=== PATIENT | female | born 1970 | race American Indian/Alaskan Native ===

== ENCOUNTER 2018-01-20 09:56 | Emergency (ER) | payer OTHER ==
--- NOTE | 2018-01-20 10:02 | EDM.PDOC ---
ED HPI GENERAL MEDICAL PROBLEM - General Chief Complaint: Abdominal Pain Stated Complaint: SENT FROM [facility]: [place] / [phone] (home) Time Seen by Provider: 01/20/18 09:59 Source of Information: Reports: Patient, Provider (Loela Olivares, [facility]), RN, RN Notes Reviewed History Limitations: Reports: No Limitations - History of Present Illness INITIAL COMMENTS - FREE TEXT/NARRATIVE: Pt presents to ER by POV, having been sent from [facility] by Leola Olivares for possible appendicitis. Pt with Hx of abdominal pain that has localized to the RLQ, assoc. with nausea, vomiting, and diarrhea. Pt had lab and UA at clinic. Nely Olivares reports to me by phone that pt has WBC 29,800, and a "clear urine". Pt states she received two IM shots at the clinic today, one for pain and one for nausea, but she doesn't know what the medications were. Pt reports onset of periumbilcial abdominal pain with nausea and vomiting Friday night at about 19:30HRS. Prior to the onset of Sx's [place] She and her ate the same food, but the did not get sick. Pt did possibly eat something from the salad bar that he did not. Pt reports recurrent fevers and chills with diaphoresis, and also had some watery diarrhea. The pain slowly localized to the right lower abdomen after about 24 hours. She denies flank pain, radiating pain, bloody or coffee ground emesis, bloody/black/or melanotic stools. Pt last ate solid food on 01/18/18. She attempted to sip coffee early this morning, but vomited it all up. 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: Musculoskeletal History: Reports: None Neurological History: Reports: None Psychiatric History: Reports: None Endocrine/Metabolic History: Reports: None Hematologic History: Reports: None Immunologic History: Reports: None Oncologic (Cancer) History: Reports: None Dermatologic History: Reports: None - Infectious Disease History Infectious Disease History: Reports: Chicken Pox - Past Surgical History Female Surgical History: Reports: Section Social & Family History - Family History Family Medical History: Noncontributory - Tobacco Use Smoking Status *Q: Current Every Day Smoker Tobacco Use Within Last Twelve Months: Cigarettes Years of Tobacco use: 27 Packs/Tins Daily: 0.5 Smoking Cessation Information Provided To Patient: No - Caffeine Use Caffeine Use: Reports: Coffee, Soda - Living Situation & Occupation Living situation: Reports: , with Spouse Occupation: Employed ED ROS GENERAL - Review of Systems Review Of Systems: ROS reveals no pertinent complaints other than HPI. ED EXAM, GI/ABD - Physical Exam Exam: See Below Exam Limited By: No Limitations General Appearance: Alert, Mild Distress (due to pain), Obese, Other ( uncomfortable, but non-toxic appearing) Eyes: Bilateral: Normal Appearance (no scleral icterus) Nose: Normal Inspection Throat/Mouth: Normal Inspection, Normal Lips, Normal Oropharynx, Normal Voice, No Airway Compromise Head: Atraumatic, Normocephalic Respiratory/Chest: No Respiratory Distress, Lungs Clear, Normal Breath Sounds, No Accessory Muscle Use, Chest Non-Tender Cardiovascular: Regular Rate, Rhythm, No Edema, Tachycardia GI/Abdominal Exam: Normal Bowel Sounds, Soft, No Distention, Guarding (at RLQ), Rebound (RLQ), Tender (generalized abdominal tenderness, and acutely tender with peritoneal signs at RLQ). No: Rigid (Female) Exam: Deferred Rectal (Female) Exam: Deferred Back Exam: Normal Inspection Extremities: Normal Inspection, Normal Range of Motion, Non-Tender, Normal Capillary Refill, No Pedal Edema Neurological: Alert, Oriented, CN II-XII Intact, Normal Cognition, No Motor/ Sensory Deficits Psychiatric: Normal Affect, Normal Mood Skin Exam: Warm, Dry, Intact, Normal Color, No Rash Course - Vital Signs Last Recorded V/S: Last Vital Signs Temp 37.3 C 01/20/18 09:58 Pulse 103 H 01/20/18 09:58 Resp 18 01/20/18 09:58 BP 122/81 01/20/18 09:58 Pulse Ox 97 01/20/18 09:58 - Orders/Labs/Meds Orders: Active Orders 24 hr Category Date Time Status Peripheral IV Care [RC] . DIRECTED Care 01/20/18 10:09 Active Abdomen Pelvis w Cont [CT] Stat Exams 01/20/18 10:11 Taken Sodium Chloride 0.9% [Saline Flush] Med 01/20/18 10:09 Active 10 ml FLUSH ASDIRECTED PRN Peripheral IV Insertion Adult [OM.PC] Stat Oth 01/20/18 10:08 Ordered Medication Orders Sodium Chloride (Saline Flush) 10 ml FLUSH ASDIRECTED PRN PRN Reason: Keep Vein Open Last Admin: 01/20/18 10:15 Dose: 10 ml Labs: Laboratory Tests 01/20/18 01/20/18 01/20/18 Range/Units 10:25 10:25 10:25 WBC 28.0 H* (5.0-10.0) 10^3/uL RBC 4.97 (4.2-5.4) 10^6/uL Hgb 15.8 (12.0-16.0) g/dL Hct 46.4 (37.0-47.0) % MCV 93.4 (80-100) fL MCH 31.8 (27.0-34.0) pg MCHC 34.1 (33.0-35.0) g/dL Plt Count 293 (150-450) 10^3/uL Neut % (Auto) 91.3 H (42.2-75.2) % Lymph % (Auto) 5.2 L (20.5-50.1) % [place] % (Auto) 3.3 (2-8) % Eos % (Auto) 0.1 L (1.0-3.0) % Baso % (Auto) 0.1 (0.0-1.0) % Sodium 135 (135-145) mmol/L Potassium 4.2 (3.6-5.0) mmol/L Chloride 99 L (101-111) mmol/L Carbon Dioxide 26.0 (21.0-31.0) mmol/L Anion Gap 14.2 BUN 12 (7-18) mg/dL Creatinine 0.8 (0.6-1.3) mg/dL Est Cr Clr Drug Dosing 75.07 mL/min Estimated GFR (MDRD) > 60 BUN/Creatinine Ratio 15.00 Glucose 121 H (74-105) mg/dL Lactic Acid 1.6 (0.5-2.2) mmol/L Calcium 9.4 (8.4-10.2) mg/dl Total Bilirubin 1.9 H (0.2-1.0) mg/dL AST 16 (10-42) IU/L ALT 11 (10-60) IU/L Alkaline Phosphatase 78 (42-121) IU/L Total Protein 7.4 (6.7-8.2) g/dl Albumin 3.8 (3.2-5.5) g/dl Globulin 3.6 Albumin/Globulin Ratio 1.06 Amylase 24 L (28-100) U/L Lipase 18 L (22-51) U/L Labs from [facility] from 01/20/18 reviewed by me. Meds: Medications Generic Name Dose Route Start Last Admin Trade Name Freq PRN Reason Stop Dose Admin Sodium Chloride 10 ml 01/20/18 10:09 01/20/18 10:15 Saline Flush FLUSH 10 ml ASDIRECTED PRN Administration Keep Vein Open Discontinued Medications Generic Name Dose Route Start Last Admin Trade Name Freq PRN Reason Stop Dose Admin Hydromorphone HCl 1 mg 01/20/18 10:41 01/20/18 10:53 Dilaudid IVPUSH 01/20/18 10:42 1 mg ONETIME ONE Administration Sodium Chloride 1,000 mls @ 999 mls/hr 01/20/18 10:09 01/20/18 10:41 Normal Saline IV 01/20/18 11:09 999 mls/hr .BOLUS ONE Administration Piperacillin Sod/Tazobactam 50 mls @ 100 mls/hr 01/20/18 10:41 01/20/18 11:05 Sod 4.5 gm/ Sodium Chloride IV 01/20/18 11:10 100 mls/hr ONETIME ONE Administration Iopamidol 75 ml 01/20/18 10:11 01/20/18 10:32 Isovue-300 (61%) IVPUSH 01/20/18 10:12 75 ml ONETIME ONE Administration Ondansetron HCl 4 mg 01/20/18 10:41 01/20/18 10:50 Zofran IV 01/20/18 10:42 4 mg ONETIME ONE Administration - Radiology Interpretation Free Text/Narrative:: CT Abd/Pelvis w/IV contrast: appendolith w/periappendiceal fat stranding, and dil. appendix, see Rad. report. CT Results Date: 01/20/18 Departure - Departure Time of Disposition: 11:18 Disposition: DC/Tfer to Acute Hospital 02 Condition: Serious Clinical Impression: Appendicitis Qualifiers: Appendicitis type: acute appendicitis Acute appendicitis type: with localized peritonitis Qualified Code(s): K35.3 - Acute appendicitis with localized peritonitis - Discharge Information Referrals: Nori Daugherty MD [Primary Care Provider] - Forms: ED Department Discharge, Interfacility Transfer EMTALA - My Orders Last 24 Hours: My Active Orders 01/20/18 10:08 Peripheral IV Insertion Adult [OM.PC] Stat 01/20/18 10:09 Peripheral IV Care [RC] . DIRECTED Sodium Chloride 0.9% [Saline Flush] 10 ml FLUSH ASDIRECTED PRN 01/20/18 10:11 Abdomen Pelvis w Cont [CT] Stat - Assessment/Plan Last 24 Hours: My Active Orders 01/20/18 10:08 Peripheral IV Insertion Adult [OM.PC] Stat 01/20/18 10:09 Peripheral IV Care [RC] . DIRECTED Sodium Chloride 0.9% [Saline Flush] 10 ml FLUSH ASDIRECTED PRN 01/20/18 10:11 Abdomen Pelvis w Cont [CT] Stat
[2018-01-20] MEDS ORDERED: Sodium Chloride 0.9% 1,000 ML IV ONE (10:09)
[2018-01-20] MEDS ORDERED: Sodium Chloride 0.9% 10 ML Syringe FLUSH PRN (10:09)
[2018-01-20] MEDS ORDERED: Iopamidol 612 MG/ML 75 ML Bottle IVPUSH ONE (10:11)
[2018-01-20 10:29] VITALS: BP 122/81
[2018-01-20] MEDS ORDERED: Piperacillin/Tazobactam 4.5 GM in Sodium Chloride 0.9% 50 ML IV ONE (10:41)
[2018-01-20] MEDS ORDERED: HYDROmorphone 0.5 MG/0.5 ML Syringe IVPUSH ONE (10:41)
[2018-01-20] MEDS ORDERED: Ondansetron 4 MG/2 ML SDV IV ONE (10:41)
[2018-01-20 10:52] LABS: ANION GAP 14.2; CHLORIDE,CL 99 mmol/L (101-111); SODIUM,NA 135 mmol/L (135-145)
== END 2018-01-20 11:45 ==
LOC: DL.ED 09:56
DX: K35.3 Acute appendicitis with localized peritonitis (principal); F17.210 Nicotine dependence, cigarettes, uncomplicated; Z88.5 Allergy status to narcotic agent
CPT/HCPCS: 36415; 74177; 80053; 82150; 83605; 83690; 85025; 96365; 96375; 99284; 99285; J1170; J2405; J2543; J7030; J7050; Q9967

== ENCOUNTER 2018-01-25 03:02 | Emergency (ER) | payer OTHER ==
[2018-01-25 03:07] VITALS: BP 140/83
--- NOTE | 2018-01-25 03:09 | EDM.PDOC ---
ED HPI GENERAL MEDICAL PROBLEM - General Stated Complaint: SURGICAL SITE "LEAKING" [id number] Time Seen by Provider: 01/25/18 03:09 Source of Information: Reports: Patient, Family, RN, RN Notes Reviewed History Limitations: Reports: No Limitations - History of Present Illness INITIAL COMMENTS - FREE TEXT/NARRATIVE: Pt to ER with c/o thick copious drainage from an abdominal incision site. Pt states she had surgery on 01/20/18 for a ruptured appendix. She states there was a lot of infection that was cleaned from her abdomen. Patient states all has been good until this past evening when she had a terrible side ache. She states she took 2 pain pills and went to sleep at midnight. She states she woke up just prior to arrival with a lot of bloody/pus drainage. Patient states she is very tender to the abdomen. Pt states last BM was yesterday. Patient states she has not been eating a whole lot. Onset: Today, Sudden Right Upper Abdomen Pain Score (Numeric/FACES): 8 - Related Data Allergies Allergy/AdvReac Type Severity Reaction Status Date / Time codeine Allergy Hallucinati Verified 01/20/18 10:28 [From Tylenol-Codeine #3] ons Home Meds: Home Meds . 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: Musculoskeletal History: Reports: None Neurological History: Reports: None Psychiatric History: Reports: None Endocrine/Metabolic History: Reports: None Hematologic History: Reports: None Immunologic History: Reports: None Oncologic (Cancer) History: Reports: None Dermatologic History: Reports: None - Infectious Disease History Infectious Disease History: Reports: Chicken Pox - Past Surgical History Female Surgical History: Reports: Section Social & Family History - Family History Family Medical History: Noncontributory - Caffeine Use Caffeine Use: Reports: Coffee, Soda - Living Situation & Occupation Living situation: Reports: , with Spouse Occupation: Employed ED ROS GENERAL - Review of Systems Review Of Systems: ROS reveals no pertinent complaints other than HPI. ED EXAM, GI/ABD - Physical Exam Exam: See Below Exam Limited By: No Limitations General Appearance: Alert, WD/WN, Moderate Distress Eyes: Bilateral: Normal Appearance, EOMI Ears: Normal External Exam, Hearing Grossly Normal Nose: Normal Inspection Throat/Mouth: Normal Inspection, Normal Voice, No Airway Compromise Head: Atraumatic, Normocephalic Neck: Normal Inspection, Supple, Non-Tender, Full Range of Motion Respiratory/Chest: No Respiratory Distress, No Accessory Muscle Use, Chest Non- Tender, Decreased Breath Sounds Cardiovascular: Normal Peripheral Pulses, Regular Rate, Rhythm, No Edema, No Gallop, No JVD, No Murmur, No Rub GI/Abdominal Exam: Tender (to gentle touch), Abnormal Bowel Sounds (hypoactive) (Female) Exam: Deferred Rectal (Female) Exam: Deferred Back Exam: Normal Inspection, Decreased Range of Motion Extremities: Normal Inspection, Normal Range of Motion, Non-Tender, No Pedal Edema, Normal Capillary Refill Neurological: Alert, Oriented, Normal Cognition, Normal Gait, No Motor/Sensory Deficits Psychiatric: Normal Affect, Normal Mood Skin Exam: Warm, Dry, Wound/Incision (across the right lower abdomen from an open appy, draining green/bloody pus from the incision site. Not redness noted at the incision site. ) Lymphatic: No Adenopathy Course - Vital Signs Last Recorded V/S: Last Vital Signs Temp 99.0 F 01/25/18 03:06 Pulse 92 01/25/18 03:06 Resp 16 01/25/18 03:06 BP 140/83 01/25/18 03:06 Pulse Ox 98 01/25/18 03:06 - Orders/Labs/Meds Orders: Active Orders 24 hr Category Date Time Status CULTURE BLOOD [BC] Stat Lab 01/25/18 03:36 Received CULTURE BLOOD [BC] Stat Lab 01/25/18 03:41 Received CULTURE WOUND [RM] Urgent Lab 01/25/18 03:22 Received Blood Culture x2 Reflex Set [OM.PC] Stat Oth 01/25/18 03:31 Ordered Labs: Laboratory Tests 01/25/18 01/25/18 01/25/18 Range/Units 03:36 03:36 03:36 WBC 26.2 H* (5.0-10.0) 10^3/uL RBC 4.18 L (4.2-5.4) 10^6/uL Hgb 13.1 D (12.0-16.0) g/dL Hct 39.6 (37.0-47.0) % MCV 94.7 (80-100) fL MCH 31.3 (27.0-34.0) pg MCHC 33.1 (33.0-35.0) g/dL Plt Count 393 D (150-450) 10^3/uL Neut % (Auto) Demo Event Specialist Lymph % (Auto) Demo Event Specialist [place] % (Auto) Demo Event Specialist Eos % (Auto) Demo Event Specialist Baso % (Auto) Demo Event Specialist Add Manual Diff Yes Neutrophils % (Manual) 79 H (42-75) % Lymphocytes % (Manual) 15 L (20-50) % Monocytes % (Manual) 6 (2-8) % Sodium 137 (135-145) mmol/L Potassium 4.2 (3.6-5.0) mmol/L Chloride 101 (101-111) mmol/L Carbon Dioxide 27.0 (21.0-31.0) mmol/L Anion Gap 13.2 BUN 7 (7-18) mg/dL Creatinine 0.6 (0.6-1.3) mg/dL Est Cr Clr Drug Dosing 100.09 mL/min Estimated GFR (MDRD) > 60 BUN/Creatinine Ratio 11.66 Glucose 106 H (74-105) mg/dL Lactic Acid 2.4 H (0.5-2.2) mmol/L Calcium 8.5 (8.4-10.2) mg/dl Total Bilirubin 0.5 (0.2-1.0) mg/dL AST 19 (10-42) IU/L ALT 19 (10-60) IU/L Alkaline Phosphatase 72 (42-121) IU/L Total Protein 6.4 L (6.7-8.2) g/dl Albumin 2.7 L (3.2-5.5) g/dl Globulin 3.7 Albumin/Globulin Ratio 0.73 - Re-Assessments/Exams Free Text/Narrative Re-Assessment/Exam: 01/25/18 04:28 [id number] [facility] called. They state they are on mass alert and are on diversion for STEMIs, Traumas, and OR is down at this time. They are having trauma code in the ER and unable to speak with a surgeon or ER doc. Patient would like to leave and drive to and present to the ER there. Risks discussed with the patient and her , and they feel they would still like to go this route. Patient and are advised to call 911 if they have any troubles. They state understanding of the risks and feel they are comfortable driving to . Departure - Departure Time of Disposition: 04:27 Disposition: DC/Tfer to Acute Hospital 02 Condition: Fair, Serious Clinical Impression: Abdominal infection - Discharge Information Forms: ED Department Discharge Additional Instructions: Drive directly to [place] to present at the ER Call 911 with any problems - My Orders Last 24 Hours: My Active Orders 01/25/18 03:22 CULTURE WOUND [RM] Urgent 01/25/18 03:31 Blood Culture x2 Reflex Set [OM.PC] Stat 01/25/18 03:36 CULTURE BLOOD [BC] Stat 01/25/18 03:41 CULTURE BLOOD [BC] Stat - Assessment/Plan Last 24 Hours: My Active Orders 01/25/18 03:22 CULTURE WOUND [RM] Urgent 01/25/18 03:31 Blood Culture x2 Reflex Set [OM.PC] Stat 01/25/18 03:36 CULTURE BLOOD [BC] Stat 01/25/18 03:41 CULTURE BLOOD [BC] Stat
[2018-01-25 04:07] LABS: ANION GAP 13.2; CHLORIDE,CL 101 mmol/L (101-111); SODIUM,NA 137 mmol/L (135-145)
== END 2018-01-25 04:30 ==
LOC: DL.ED 03:02
DX: T81.4XXA Infection following a procedure, initial encounter (principal); Z88.5 Allergy status to narcotic agent
CPT/HCPCS: 36415; 80053; 83605; 85025; 87040; 87070; 87077; 87186; 99284

== ENCOUNTER 2025-01-15 08:22 | Observation (INO) | payer BC, OTHER ==
[2025-01-15] MEDS: Ondansetron 4 MG/2 ML SDV IVPUSH ONE (08:31)
[2025-01-15 08:51] LABS: BASOPHILS PERCENT AUTO 0.3 % (0.0-1.0); EOSINOPHILS PERCENT AUTO 1.4 % (1.0-3.0); HEMATOCRIT 55.6 % (37.0-47.0); HEMOGLOBIN 18.7 g/dL (12.0-16.0); LYMPHOCYTES PERCENT AUTO 28.7 % (20.5-50.1); MEAN CORPUSCULAR HEMOGLOBIN 31.3 pg (27.0-34.0); MEAN CORPUSCULAR HGB CONC 33.6 g/dL (33.0-35.0); MONOCYTES PERCENT AUTO 6.8 % (2-8); NEUTROPHILS PERCENT AUTO 62.8 % (42.2-75.2); PLATELET COUNT,PLT 297 10^3/uL (150-450); RED BLOOD CELL COUNT 5.98 10^6/uL (4.2-5.4); WHITE BLOOD CELL COUNT,WBC 14.4 10^3/uL (5.0-10.0)
[2025-01-15] MEDS: GI Cocktail Oral Solution 30 ML PO ONE (08:55)
[2025-01-15] MEDS ORDERED: Iopamidol 612 MG/ML 100 ML Bottle IVPUSH ONE (08:58)
[2025-01-15] MEDS: Pantoprazole 40 MG in Sodium Chloride 0.9% 100 ML IV ONE (09:00)
[2025-01-15 09:04] LABS: A/G RATIO 1.2; ALANINE AMINOTRANSFERASE,ALT 37 U/L (14-59); ALBUMIN 4.6 g/dL (3.4-5.0); ALKALINE PHOSPHATASE 119 U/L (46-116); ANION GAP 16.2 mEq/L (7-13); ASPARTATE AMNIOTRANSFERASE,AST 17 U/L (15-37); BILIRUBIN TOTAL 1.4 mg/dL (0.2-1.0); BLOOD UREA NITROGEN,BUN 15 mg/dL (7-18); BUN/CREATININE RATIO 12.2 (No establ ref range); CALCIUM 10.8 mg/dL (8.5-10.1); CARBON DIOXIDE,CO2 26 mmol/L (21-32); CHLORIDE,CL 105 mmol/L (98-107); CREATININE 1.23 mg/dL (0.55-1.02); GLUCOSE RANDOM 131 mg/dL (70-99); LIPASE 166 U/L (16-77); MAGNESIUM 2.1 mg/dL (1.8-2.4); POTASSIUM,K 4.2 mmol/L (3.5-5.1); PROTEIN TOTAL,TP 8.5 g/dL (6.4-8.2); SODIUM,NA 143 mmol/L (136-145)
[2025-01-15] MEDS: Haloperidol Lactate 5 MG/ML SDV IVPUSH ONE ×2 (09:04→10:37)
[2025-01-15 09:05] LABS: ESTIMATED GFR 52 mL/min (>=60)
[2025-01-15] MEDS: Lactated Ringers 1,000 ML IV SCH (10:36)
[2025-01-15 12:18] VITALS: BP 141/75; PULSE 55
[2025-01-15] MEDS ORDERED: Acetaminophen 325 MG Tab PO PRN (12:19)
[2025-01-15] MEDS ORDERED: Melatonin 3 MG Tab PO PRN (12:19)
[2025-01-15] MEDS ORDERED: Sodium Chloride 0.9% 10 ML Syringe FLUSH PRN (12:19)
[2025-01-15] MEDS ORDERED: Sodium Chloride 0.9% 1,000 ML IV SCH (12:30)
[2025-01-15 12:45] LABS: APPEARANCE,URINE CLEAR (CLEAR); BILIRUBIN,URINE NEGATIVE (NEGATIVE); COLOR,URINE YELLOW (YELLOW); GLUCOSE,URINE NEGATIVE (NEGATIVE); KETONES,URINE 40 (NEGATIVE); LEUKOCYTE ESTERASE,URINE NEGATIVE (NEGATIVE); NITRITE,URINE NEGATIVE (NEGATIVE); OCCULT BLOOD,URINE TRACE-INTACT (NEGATIVE); PROTEIN,URINE 30 (NEGATIVE); UROBILINOGEN,URINE 0.2 mg/dL (0.2-1.0)
[2025-01-15 12:48] LABS: AMPHETAMINES,URINE NEGATIVE (NEGATIVE); BARBITURATES,URINE NEGATIVE (NEGATIVE); BENZODIAZEPINE,URINE NEGATIVE (NEGATIVE); MDMA (ECSTASY), URINE NEGATIVE (NEGATIVE); METHADONE,URINE NEGATIVE (NEGATIVE); METHAMPHETAMINES,URINE NEGATIVE (NEGATIVE); OPIATES,URINE NEGATIVE (NEGATIVE); OXYCODONE,URINE NEGATIVE (NEGATIVE); PHENCYCLIDINE,URINE NEGATIVE (NEGATIVE); TCA,URINE NEGATIVE (NEGATIVE)
[2025-01-15 12:51] LABS: AMORPHOUS SEDIMENT,URINE FEW /HPF (NOT SEEN); BACTERIA,URINE RARE /HPF (0-FEW/HPF); EPITHELIAL CELLS,URINE FEW /HPF (NOT SEEN); MUCUS,URINE FEW /LPF (NOT SEEN)
[2025-01-15 12:52] LABS: HYALINE CASTS,URINE RARE; RBC,URINE 0-5 /HPF (0-5); WBC,URINE 0-5 /HPF (0-5/HPF)
[2025-01-15] MEDS ORDERED: Metoclopramide 10 MG/2 ML SDV IV PRN (13:00)
[2025-01-15] MEDS ORDERED: Ketorolac 30 MG/ML SDV IVPUSH ONE (14:19)
[2025-01-15] MEDS ORDERED: Ondansetron 4 MG/2 ML SDV IVPUSH PRN (16:00)
[2025-01-15] MEDS ORDERED: Sodium Chloride 0.9% 10 ML Syringe FLUSH SCH (21:00)
[2025-01-16] MEDS ORDERED: Pantoprazole 40 MG Vial IVPUSH SCH (09:00)
[2025-01-16] MEDS ORDERED: Enoxaparin 40 MG/0.4 ML Syringe SUBCUT SCH (09:00)
== END 2025-01-15 14:20 | disposition left against medical advice (07) ==
LOC: DL.ED 08:22 → UNDOADMOB 11:44 → DL.MS 11:44
PROVIDERS: ADMIT Student in an Organized Health Care Education/Training Program; ATTEND Student in an Organized Health Care Education/Training Program
DX: R10.84 Generalized abdominal pain (principal); R11.2 Nausea with vomiting, unspecified; R19.7 Diarrhea, unspecified; R00.1 Bradycardia, unspecified; E11.9 Type 2 diabetes mellitus without complications; I10 Essential (primary) hypertension; D72.829 Elevated white blood cell count, unspecified; D75.1 Secondary polycythemia; E83.52 Hypercalcemia; E80.6 Other disorders of bilirubin metabolism; R74.8 Abnormal levels of other serum enzymes; Z88.5 Allergy status to narcotic agent
CPT/HCPCS: 36415; 71045; 74177; 80053; 80305-QW; 81001; 82947; 83615; 83690; 83735; 84484; 85025; 86140; 96361; 96374; 96375; 96376; 99222; 99285-25; A9270-GY; J1630; J2405; J2470; J7120